=== PATIENT | female | born 1980 | race African-American/Black ===

== ENCOUNTER 2022-01-07 05:44 | Emergency (ER) | payer MEDICARE, MEDICAID, SELFPAY ==
[2022-01-07] VITALS (12 sets, daily range): BP systolic 112–150; BP diastolic 51–89; PULSE 66–96; RESP 12–19; TEMP 36.3; O2SAT 96–100
--- NOTE | 2022-01-07 06:04 | ED.GENADULT ---
HPI - General Adult General Chief complaint: Back Pain/Injury <DO Dyllan Galvan Last Filed: 01/07/22 06:21> Stated complaint: BACK SPASMS <Bennie Martinez DO - Last Filed: 01/07/22 06:21> Time Seen by Provider: 01/07/22 05:53 <Bennie Martinez DO - Last Filed: 01/07/22 06:21> Source: RN notes reviewed <Bennie Martinez DO - Last Filed: 01/07/22 06:21> History of Present Illness HPI narrative: Patient presents emergency department via EMS for back spasms. The patient currently is homeless states she has been working with her case investigator trying to find her self and place to stay she is wheelchair-bound secondary to a previous CVA that left the patient with minimal movement and the right arm and right leg she does not ambulate patient states that this morning she was trying to wheel around faster trying to find snf from the oncoming rain she states that when she was doing this her back to began to spasm. She denies any fevers or chills chest pain shortness of breath abdominal pain nausea or vomiting states her back spasms are resolved at this time. Patient does states she has some skin breakdown in her buttocks region and inner thighs states she does wear depends but are close been wet as she was caught in the rain yesterday <Bennie Martinez DO - Last Filed: 01/07/22 06:21> Related Data Allergies/adverse reactions: Allergies Allergy/AdvReac Type Severity Reaction Status Date / Time penicillin G Allergy Severe Swelling Verified 01/07/22 05:54 of Lip/Tongue/Throat <DO Dyllan Galvan Last Filed: 01/07/22 06:21> Review of Systems Review of Systems: Gen.: Denies fevers or chills ENT: Denies congestion Respiratory: Denies shortness of breath or cough CV: Denies chest pain or palpitations GI: Denies abdominal pain nausea, emesis or diarrhea denies burning, urgency, frequency or hematuria Musculoskeletal: Reports back spasm Neuro: Reports chronic right-sided weakness Skin: Reports rash in buttocks region Except as documented, all other systems reviewed and negative <DO Dyllan Galvan Last Filed: 01/07/22 06:21> PMFSH Past Medical History Medical History: Medical History (Updated 01/07/22 @ 14:27 by Narendra Mg DO) CVA (cerebral vascular accident) <Bennie Martinez DO - Last Filed: 01/07/22 06:21> Family History Family History: Family History (Updated 02/27/14 @ 07:13 by DOCTOR UNKNOWN) Father Family history of malignant neoplasm Patient's father is Mother Family history of malignant neoplasm Patient's mother is <Bennie Martinez DO - Last Filed: 01/07/22 06:21> Social History Social History: Social History Smoking end date: 07/03/12 <Bennie Martinez DO - Last Filed: 01/07/22 06:21> Exam Narrative: APPEARANCE: No acute distress, nontoxic, resting in bed EYES: EOMI HEENT: Normocephalic, atraumatic, OMM RESPIRATORY: No respiratory distress Clear to auscultation bilaterally with no rhonchi wheezing or rales. CARDIOVASCULAR: Regular rate and rhythm without murmurs rubs or gallops. ABDOMINAL: Soft, nontender, nondistended, no rebound or guarding MUSCULOSKELETAl: No clubbing, cyanosis or edema. NEURO: Awake and alert. Following commands, speech normal, no focal deficits right leg held in flexion contracture minimal movement right arm with weakness noted normal movement of the left arm and left leg SKIN:: Warm, dry. Erythematous rash with some superficial skin breakdown in the perineal region and inner thighs no signs of infection PSYCHIATRIC: Normal affect/mood, <Bennie Martinez DO - Last Filed: 01/07/22 06:21> Course Course Emergency Course: Patient did have some back spasms we had to undress the patient to review rash and then change her out of her wet depends will give medication at this time
[2022-01-07] MEDS: ACETAMINOPHEN 500 MG TABLET 1000 MG PO (06:17)
--- NOTE | 2022-01-07 06:21 | PC.NURSE ---
Pt was found to have two depends on one on top of the other. Both depends soaked with urine. Pt states she has not changed them in 24 hours due to the inability due to lack of privacy. Pericare was performed and barrier cream was applied. Pts skin open to air at this time to dry. Pt provided socks and something to drink at this time. Pt reports inability to fully care for oneself due to contracted hands.
--- NOTE | 2022-01-07 07:05 | PC.NURSE ---
Assumed care of pt. at this time. Report from SUSANA Silva
--- NOTE | 2022-01-07 08:03 | PC.NURSE ---
physical therapy at bedside.
--- NOTE | 2022-01-07 08:27 | PCCCNOTE ---
met with patient bedside, patient is alert and oriented x4, patient uses a wheelchair that is present in room. patient states that she is now homeless and has no where to dc to. Patient states that she has been to the shelters in [place] but prefers not to go back. CC asked MD to order PT/OT. orders were placed, therapy called to make patient a priority. CC sent referrals to [facility], [facility], [facility], [facility], and [facility]. CC will submit insurance auth request once therapy recs are placed. of note, patient has received covid vaccine x3. CC will continue to follow patient. patient aware.
--- NOTE | 2022-01-07 11:02 | PCCCNOTE ---
spoke with Kristen from [facility] insurance auth [facility] line. PT/OT notes were submitted to [facility] insurance auth. [facility] request for therapy to eval for transfer attempt. therapy unwilling as it is considered unsafe. prior to admission patient states that she was able to transfer self, however due to muscle spasms she was not willing to attempt transfer at this time.
--- NOTE | 2022-01-07 11:32 | PCCCNOTE ---
refaxed updated PT note to [facility]. CC will continue to follow.
--- NOTE | 2022-01-07 14:03 | PCCCNOTE ---
[facility] are unable to accept patient due to back ground check of open case for aggravated assault of a police magistrate. [facility] sent the auth request to their medical surgical tech, likely to be denied. CC made several calls to isabel case aide, Deborah lewis, left voicemails without return CC called ex hernan, uncle [facility] [place] without luck. patients phone no longer working,
--- NOTE | 2022-01-07 15:19 | PCCCNOTE ---
[facility] denied SNF auth request,p2p was an option however patient wanted to dc to [place]. CC gave 6 bus tokens to patient with the bus route. patient is alert and oriented x 4. patient denies any other dc needs at this time. CC will continue to follow.
== END 2022-01-07 15:00 | disposition home or self-care (01) ==
PROVIDERS: Emergency Provider Emergency Medicine
DX: M62.830 Muscle spasm of back (principal); I69.951 Hemiplegia and hemiparesis following unspecified cerebrovascular disease affecting right dominant side; Z59.00 Homelessness unspecified; Z99.3 Dependence on wheelchair; Z87.891 Personal history of nicotine dependence
CPT/HCPCS: 97161; 97166; 99283; A9270

== ENCOUNTER 2022-03-19 18:36 | Emergency (ER) | payer MEDICARE, MEDICAID, SELFPAY ==
[2022-03-19 18:40] VITALS: BP 151/95; PULSE 78; RESP 16; TEMP 36.8; O2SAT 99
--- NOTE | 2022-03-19 19:36 | ED.GENADULT ---
HPI - General Adult General Chief complaint: Back Pain/Injury Stated complaint: homeless [place] bound back and abd spasms Time Seen by Provider: 03/19/22 19:18 Source: RN notes reviewed History of Present Illness HPI narrative: Patient presents emergency department via EMS for back spasms. Patient states that she currently is homeless and is wheelchair-bound secondary to previous CVA she had been in [facility] and got out of [facility] yesterday and had no place to go is been seen on the bench overnight she states she is normally on baclofen 3 times a day has not been able to have her baclofen has been having increasing muscle spasms in her back and abdomen. She denies any direct trauma or injury to her back she states she does have a history of chronic back spasms she denies any fevers or chills chest pain shortness of breath nausea vomiting diarrhea or any other symptoms Related Data Allergies Allergy/AdvReac Type Severity Reaction Status Date / Time penicillin G Allergy Severe Swelling Verified 03/19/22 18:41 of Lip/Tongue/Throat Review of Systems Review of Systems: Gen.: Denies fevers or chills ENT: Denies congestion Respiratory: Denies shortness of breath or cough CV: Denies chest pain or palpitations GI: Denies abdominal pain nausea, emesis or diarrhea Musculoskeletal: See HPI Neuro: Denies numbness, tingling, weakness or focal weakness Skin: Denies rash Except as documented, all other systems reviewed and negative PMFSH Past Medical History Medical History CVA (cerebral vascular accident) Family History Family History (Updated 02/27/14 @ 07:13 by DOCTOR UNKNOWN) Father Family history of malignant neoplasm Patient's father is Mother Family history of malignant neoplasm Patient's mother is Social History Social History Smoking end date: 07/03/12 Exam Narrative: APPEARANCE: No acute distress, nontoxic, resting in bed EYES: EOMI HEENT: Normocephalic, atraumatic, OMM RESPIRATORY: No respiratory distress Clear to auscultation bilaterally with no rhonchi wheezing or rales. CARDIOVASCULAR: Regular rate and rhythm without murmurs rubs or gallops. ABDOMINAL: Soft, nontender, nondistended, no rebound or guarding MUSCULOSKELETAl: Moves all extremities. No clubbing, cyanosis or edema. Back: No midline thoracic or lumbar tenderness palpation tender palpation bilateral paravertebral muscles L3-5 NEURO: Awake and alert. Following commands, speech normal right leg held in flexion contracture weakness in right upper extremity no movement of left upper and lower extremity SKIN:: Warm, dry. No rashes lesions or abrasions PSYCHIATRIC: Normal affect/mood, Course Course Emergency Course: Patient is currently homeless has no transportation no family in place to go tonight while patient evaluated by case management in the a.m. Discussed with patient results of workup and diagnosis. Discussed need for follow-up with primary care, proper use of medication, and reasons to return to the emergency department. Patient understands and agrees to current treatment plan Vital Signs Vital signs: Vital Signs Temperature 98.2 F 03/19/22 18:40 Pulse Rate 78 03/19/22 18:40 Respiratory Rate 16 03/19/22 18:40 Blood Pressure 151/95 H 03/19/22 18:40 Pulse Oximetry 99 03/19/22 18:40 Temperature 98.2 F 03/19/22 18:40 Pulse Rate 88 03/19/22 22:07 Respiratory Rate 16 03/19/22 22:07 Blood Pressure 142/86 H 03/19/22 22:07 Pulse Oximetry 97 03/19/22 22:07 Medical Decision Making Vital Signs Vital Signs: Vital Signs Temperature 98.2 F 03/19/22 18:40 Pulse Rate 78 03/19/22 18:40 Respiratory Rate 16 03/19/22 18:40 Blood Pressure 151/95 H 03/19/22 18:40 Pulse Oximetry 99 03/19/22 18:40 Temperature 98.2 F 03/19/22 18:40 Pulse Rate 8
[2022-03-19 19:47] LABS: Basophils Absolute Auto 0.1 K/mm3 (0.0-0.1); Basophils Percent Auto 0.9 % (0.2-1.2); Eosinophils Absolute Auto 0.1 K/mm3 (0-0.3); Eosinophils Percent Auto 1.6 % (0-4.4); Hematocrit 41.3 % (37.0-47.0); Hemoglobin 13.2 g/dL (12.0-15.0); Immature Granulocyte Absolute 0.01 K/mm3 (0.00-0.031); Immature Granulocyte Percent A 0.1 % (0-0.5); Lymphocytes Absolute Auto 3.98 K/mm3 (0.9-3.2); Lymphocytes Percent Auto 58.8 % (18.3-44.2); Mean Corpuscular Hemoglobin 27.8 pg (26-34); Mean Corpuscular Volume 87.1 fl (80-100); Mean Platelet Volume 10.8 fl (7.4-10.4); Monocytes Absolute Auto 0.5 K/mm3 (0.1-0.6); Monocytes Percent Auto 7.8 % (2.6-8.5); Neutrophils Absolute Auto 2.1 K/mm3 (1.3-6.7); Neutrophils Percent Auto 30.8 % (45.5-73.1); Platelet Count Result 227 k/mm3 (150-375); Red Blood Count 4.74 M/mm3 (4.2-5.4); White Blood Count 6.8 K/mm3 (4.5-10.0)
[2022-03-19 19:59] LABS: Alanine Aminotransferase 15 U/L (6-35); Albumin Level 4.1 g/dL (3.5-5.1); Alkaline Phosphatase 81 U/L (38-126); Anion Gap 10 mmol/L (8-16); Aspartate Amino Transferase 22 U/L (14-36); Bilirubin,Total 0.8 mg/dL (0.2-1.3); Blood Urea Nitrogen 13 mg/dL (7-17); Calcium 8.7 mg/dL (8.4-10.2); Carbon Dioxide 27 mmol/L (22-30); Chloride 103 mmol/L (98-107); Estimated CRCL calculation 126 ml/min; Estimated Glomerular Filt Rate > 60; Glucose 85 mg/dL (65-110); Lipase 58 U/L (23-300); Potassium 3.8 mmol/L (3.4-5.0); Sodium 140 mmol/L (137-145)
[2022-03-19] MEDS: ACETAMINOPHEN 500 MG TABLET 1000 MG PO (20:26)
[2022-03-19] MEDS: BACLOFEN 10 MG TABLET PO (20:26)
[2022-03-19 22:07] VITALS: BP 142/86; PULSE 88; RESP 16; O2SAT 97
[2022-03-19 22:14] LABS: Appearance Urine Slightly Cloudy (Clear); Bilirubin Urine Negative (Negative); Blood Urine 1+ (Negative); Color Urine Yellow (Yellow); Glucose Urine UA Negative (Negative); Ketones Urine Trace mg/dL (Negative); Leukocyte Esterase Ur Trace LEU/UL (Negative); Nitrate Urine Positive (Negative); Protein Urine 1+ mg/dL (Negative); Specific Grav Ur 1.025 (1.001-1.035)
[2022-03-19 22:17] LABS: Bacteria Urine Trace /hpf; Mucus Urine Rare /lpf; RBC Urine 21-50 /hpf (0-2); Squamous Epithelial Cell Urine Many /hpf (Few); WBC Urine 51-75 /hpf
[2022-03-19 22:36] LABS: Add Urine Microscopic? YES
[2022-03-20] MEDS: NITROFURANTOIN MONOHYD MACROCR 100 MG CAP PO ×2 (00:05→07:36)
--- NOTE | 2022-03-20 03:04 | PC.NURSE ---
Awaiting care coordination.
--- NOTE | 2022-03-20 05:47 | PC.NURSE ---
Jayla contacted by this RN. Will reach out to on-call personnel. Awaiting call back.
--- NOTE | 2022-03-20 07:22 | PC.NURSE ---
Assumed care. Sleeping. Awaiting home visit field care manager to speak to pt.
[2022-03-20] MEDS: BACLOFEN 10 MG TABLET PO (07:36)
--- NOTE | 2022-03-20 07:52 | PCCCNOTE ---
Called to ED to assist with homeless pt. I spoke with pt and determined that no family could be contacted. She states that she is not allowed on bus d/t legal issues. She [place] a cab voucher [place]. Cab voucher provided to charge nurse Farrah for the pt.
== END 2022-03-20 09:50 | disposition home or self-care (01) ==
PROVIDERS: Emergency Provider Emergency Medicine
DX: N39.0 Urinary tract infection, site not specified (principal); M62.830 Muscle spasm of back; I69.398 Other sequelae of cerebral infarction; Z99.3 Dependence on wheelchair; Z59.02 Unsheltered homelessness
CPT/HCPCS: 36415; 80053; 81001; 83690; 85025; 87086; 87088; 99283; A9270

== ENCOUNTER 2022-03-21 11:50 | Emergency (ER) | payer MEDICARE, MEDICAID, SELFPAY ==
--- NOTE | ~2022-03-21 | XR_ITS ---
EXAM: XR toe 1st RT min 2V DATE: 03/21/2022 17:20 HISTORY: lac to bottom of 1st digit, stubbed toe . COMPARISON: None available. FINDINGS: Normal mineralization. No fracture or dislocation. No lytic or blastic lesion. Mild degene rative change. No erosion or periosteal change. Soft tissues within normal limits. IMPRESSION: No acute osseous finding in the right first toe. Reviewed, dictated and finalized at location K.
[2022-03-21 12:29] VITALS: BP 150/90; PULSE 64; RESP 20; TEMP 36.5; O2SAT 99
--- NOTE | 2022-03-21 17:07 | ED.LOWEXIN ---
HPI - Extremity Injury (Lower) General Chief Complaint: Extremity Injury, Lower Stated Complaint: stubbed toe Time Seen by Provider: 03/21/22 16:49 History of Present Illness HPI Narrative: Patient is a 42-year-old female here for evaluation of right toe pain after she stubbed earlier today. 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 She is noted pain and swelling ever since, initially had some bleeding which has since resolved. She is unsure of her last tetanus shot. Patient states she is homeless. Denies any numbness or tingling in her feet. Has not taken anything for pain. She was seen here yesterday for muscle spasms. Related Data Allergies Allergy/AdvReac Type Severity Reaction Status Date / Time penicillin G Allergy Severe Swelling Verified 03/19/22 18:41 of Lip/Tongue/Throat Review of Systems Review of Systems: Gen: Denies fevers or chills Eyes: Denies eye pain or visual change ENT: Denies congestion Respiratory: Denies shortness of breath or cough CV: Denies chest pain or palpitations GI: Denies abdominal pain nausea, emesis or diarrhea denies burning, urgency, frequency or hematuria Musculoskeletal: Return right great toe pain. Neuro: Denies numbness, tingling, weakness or focal weakness Skin: Reports laceration to right great toe Except as documented, all other systems reviewed and negative [facility] Past Medical History Medical History CVA (cerebral vascular accident) Family History Family History (Updated 02/27/14 @ 07:13 by DOCTOR UNKNOWN) Father Family history of malignant neoplasm Patient's father is Mother Family history of malignant neoplasm Patient's mother is Social History Social History Smoking end date: 07/03/12 Exam Narrative: Gen: Alert, oriented, no acute distress Eyes: EOMI, no icterus Pulm: Respirations even and unlabored, symmetric thorax expansion, no audible stridor or visible cyanosis CV: Regular rate per telemetry GI: No distension, no voluntary/involuntary guarding Neuro: AOx4, moves all extremities without apparent difficulty or weakness, follows commands MSK: No bony tenderness palpation of great toe. Skin: Patient has a superficial irregular skin tear to the base of the great toe with no active bleeding. Psych: Normal mood/affect, insight/judgement good, adequate fund of knowledge, recent/remote memory intact Course Vital Signs Vital signs: Vital Signs Temperature 97.7 F 03/21/22 12:29 Pulse Rate 64 03/21/22 12:29 Respiratory Rate 20 03/21/22 12:29 Blood Pressure 150/90 H 03/21/22 12:29 Pulse Oximetry 99 03/21/22 12:29 Oxygen Delivery Room Air 03/21/22 12:29 Temperature 97.7 F 03/21/22 12:29 Pulse Rate 64 03/21/22 12:29 Respiratory Rate 20 03/21/22 12:29 Blood Pressure 150/90 H 03/21/22 12:29 Pulse Oximetry 99 03/21/22 12:29 Oxygen Delivery Room Air 03/21/22 12:29 MDM - Extremity Injury (Lower) MDM Narrative Medical decision making narrative: 42-year-old female here via EMS for evaluation after she stubbed her toe earlier today. On exam patient has an irregular skin tear to the base of her right great toe, x-ray is negative for acute fracture or dislocation. The wound was irrigated extensively, the toe will be dressed with gauze and patient be instructed to follow-up with a hospice community liaison given her history of diabetes. Tetanus was updated. She is requesting a refill of her baclofen, will give patient 6 tabs. Discharge Plan Discharge Clinical Impression: Pain in toe Patient Disposition: Home, Self-Care Condition: Stable Instructions: Antibiotic Form, Arthralgia (ED) Additional Instructions: Your toe was not fractured today. It was dressed in the emerge
[2022-03-21] MEDS: TETANUS,DIPHTHERIA,AC PERTUSSIS ADULT (0.5 ML) BOOSTRIX IM (17:30)
--- NOTE | 2022-03-21 18:33 | PCCCNOTE ---
cab voucher requested for transportation. Voucher provided
--- NOTE | 2022-03-21 18:39 | PC.NURSE ---
patient experience coordinator called for assistance with a ride home for patient
--- NOTE | 2022-03-21 19:41 | PC.NURSE ---
This RN went to discharge patient with the 10mg baclofen and patient states I told her I need 20mg . I informed her that the provider ordered this 10mg tablet now and a prescription for 6 tablets. Patient states I told her I need 20mg. You were supposed to tell her I want 90 pills . I informed patient that this was the order prescribed by the provider at this time and she needs to follow up with her primary. Patient then states, you didnt tell her what the fuck i told you to tell her. 20mg aint gonna work. At this point the patient was in the hallway yelling. This RN asked the patient if she would like the medication prescribed and she declined. Patient refused to take the prescribed pill and the written prescription because she needs 20mg because 10mg dont work . Patient refused to sign discharge papers. Patient wheeled out by another RN. Provider informed.
== END 2022-03-21 19:46 | disposition home or self-care (01) ==
PROVIDERS: Emergency Provider Emergency Medicine
DX: S91.111A Laceration without foreign body of right great toe without damage to nail, initial encounter (principal); Z23 Encounter for immunization; Z86.73 Personal history of transient ischemic attack (TIA), and cerebral infarction without residual deficits; Z87.891 Personal history of nicotine dependence; W22.01XA Walked into wall, initial encounter
CPT/HCPCS: 73660; 90471; 90715; 99283